=== PATIENT | male | born 1930 | race Caucasian/White ===

== ENCOUNTER → 2018-06-15 | Outpatient (CLI) | payer OTHER ==
[~2018-06-15] VITALS: Ht 180.3 cm; Wt 79.4 kg
[~2018-06-15] MED LIST: ATIVAN1 MG PO; CARVEDILOL12.5 MG PO; COUMADIN 4 MG TA4 M1 PO; FLOMAX0.4 MG PO; FLOVENT HFA 4444 MCG INH; GAVISCON ES CH1 EACH PO; LIPITOR 20 MG T20 M1 PO; LOSARTAN POTASS50 MG PO; MELATONIN5 M1 PO; NORVASC5 MG PO; OMEPRAZOLE 20 M20 M1 PO; POTASSIUM GLUCO99 M2 PO; ZOLOFT25 MG PO
== END | disposition home or self-care (01) ==
LOC: GI 09:07
DX: K92.1 Melena (principal); Z53.8 Procedure and treatment not carried out for other reasons; I10 Essential (primary) hypertension; D64.9 Anemia, unspecified; E78.00 Pure hypercholesterolemia, unspecified; Z95.1 Presence of aortocoronary bypass graft; Z87.891 Personal history of nicotine dependence; Z85.828 Personal history of other malignant neoplasm of skin; Z79.899 Other long term (current) drug therapy; Z98.890 Other specified postprocedural states; Z79.01 Long term (current) use of anticoagulants; Z88.0 Allergy status to penicillin; Z88.8 Allergy status to other drugs, medicaments and biological substances

== ENCOUNTER → 2018-08-03 | Outpatient (CLI) | payer OTHER ==
[~2018-08-03] VITALS: Ht 180.3 cm; Wt 81.6 kg
--- NOTE | ~2018-08-03 | P ---
[facility] [place] [address] PROCEDURE REPORT Name: HERNANDEZALANNA Room #: REG [facility]#: [id number] Admission: 08/03/18 Attend Phys: Liu Seaman MD Discharge: Date of : 32 Report #: [id number] THIS REPORT FOR: //name// CC: Liu Zee BRIEF HISTORY: The patient is an 87-year-old male who is on warfarin and recently had 2 days of black tarry type stools. However, hemoglobin in his primary care office was 12.4. He does recall recent abdominal pain. He also takes a baby aspirin daily. He may be using other aspirin to help him sleep at night, but he does not recall specifically. PREOPERATIVE DIAGNOSIS: Melena while on warfarin. POSTOPERATIVE DIAGNOSES: 1. A 3 cm sliding type hiatus hernia. 2. Patchy erythematous gastritis. MEDICATIONS: Deep sedation with propofol per Anesthesia. SPECIMEN: Biopsies of gastritis, rule out Helicobacter pylori. ESTIMATED BLOOD LOSS: 3 mL. PROCEDURE: EGD with biopsy. FINDINGS: Prior to propofol sedation, the procedure of upper endoscopy was discussed with the patient as well as potential risks and its complications. He indicates he understands and desires to proceed. DESCRIPTION OF PROCEDURE: With the patient in the left lateral decubitus position, the Olympus video endoscope was inserted in the cervical esophagus under direct vision without difficulty. Examination of this organ through its length revealed normal esophageal mucosa down the squamocolumnar junction. The squamocolumnar junction was inspected and noted to be unremarkable. No evidence of ulcers, erosions or bleeding lesions. He was noted to have about a 3 cm sliding type hiatus hernia. Mucosa in the hernia was normal. There is no evidence of Jesus ulcers or erosions. No bleeding lesions were seen. The scope was advanced into the stomach, and it was examined on end view as well as retroflexed views. He was noted to have a pattern of erythema consistent with gastritis in the antrum of the stomach. No ulcers were seen. Erosions were not seen. No blood was seen. Upon retroflexion, no abnormalities were noted in the proximal stomach. The pylorus, duodenal bulb and postbulbar sweep down to the third portion were inspected and noted to be unremarkable. At that point, the scope was withdrawn and careful circumferential views confirmed the above findings. The patient tolerated the procedure well. [address] [address] PROCEDURE REPORT Name: HERNANDEZALANNA Room #: REG [place] [place]#: [id number] Admission: 08/03/18 Attend Phys: Liu Seaman MD Discharge: Date of : 32 Report #: [id number] CONDITION OF THE PATIENT UPON DISCHARGE: Following the procedure, the patient was drowsy, arousable and conversant and will be discharged home when fully ambulatory. INSTRUCTIONS TO THE PATIENT AND FAMILY AT THE TIME OF DISCHARGE: The patient reports that he had 2 days of black stools. Hemoglobin from his primary care office was normal. I do not see any bleeding lesions, although it is possible he could have had bleeding. However, the patient has used Pepto-Bismol, but does not recall the timing with regards to taking it before or after the black stools. He does not appear to be bleeding at this point in time. He could resume his warfarin at this point. If there are further problems, colonoscopy and potentially small bowel capsule study would be indicated. He will return to care of Dr. Eduin Zee and return to see me as needed. <ELECTRONICALLY SIGNED> By: Liu Seaman MD 08/09/18 1300 [id number] 1101 Liu Seaman MD /nt
--- NOTE | ~2018-08-03 | PATH ---
[facility] [address] [place] [address] PATHOLOGY RPT PROCEDURE Name: ALANNA HERNANDEZ Room #: REG [facility].#: [id number] Admission: 08/03/18 Date of : 32 Discharge: Report #: [id number] Path Case #: [id number] [facility] Accession Number: [id number] . 01 Material submitted: . BX GASTRITIS . 01 Clinical history: . Melena Gastritis, hiatal hernia Rule out H. pylori . 02 Diagnosis: Gastric biopsy, "biopsy gastritis": - Mild chronic reactive gastropathy. - The immunoperoxidase stain for Helicobacter is negative. - The control worked appropriately. (SHA:galo; 08/08/2018) QMS/08/08/2018 . 02 Electronically signed: . Wilver Oliveira MD, Pathologist NPI- [id number] . 01 Gross description: . The specimen is received in formalin, labeled "Alanna Hernandez, BX gastritis" and consists of 5 fragments of soft varela tissue measuring between 0.2 x 0.1 cm and 0.5 x 0.3 x 0.1 cm. They are entirely submitted in A1. (SDY; 08/06/2018) SYU/SYU . 02 Pathologist provided ICD-10: K31.9 . 02 CPT . 333784, N70403 Specimen Comment: A courtesy copy of this report has been sent to Specimen Comment: [phone], . Specimen Comment: Report sent to and Specimen Comment: A duplicate report has been generated due to demographic updates. Performed at: [address] [id number] MD Jatin Ojeda MD Phone: [phone] Performed at: [address] [address] PATHOLOGY RPT PROCEDURE Name: ALANNA HERNANDEZ Cherie Room #: REG [facility].#: [id number] Admission: 08/03/18 Date of : 32 Discharge: Report #: [id number] Path Case #: [id number] [address] [id number] MD Agata Orozco MD Phone: [phone]
[2018-08-03 08:18] LABS: INR 1.1; PROTIME 11.7 Seconds (9.3-11.4)
== END | disposition home or self-care (01) ==
LOC: GI 07:32
PROVIDERS: Specialist
DX: K29.50 Unspecified chronic gastritis without bleeding (principal); K31.9 Disease of stomach and duodenum, unspecified; K29.60 Other gastritis without bleeding; K44.9 Diaphragmatic hernia without obstruction or gangrene; K92.1 Melena; D64.9 Anemia, unspecified; I10 Essential (primary) hypertension; E78.5 Hyperlipidemia, unspecified; I48.91 Unspecified atrial fibrillation; Z79.01 Long term (current) use of anticoagulants; Z79.82 Long term (current) use of aspirin; Z88.0 Allergy status to penicillin; Z88.8 Allergy status to other drugs, medicaments and biological substances; Z87.891 Personal history of nicotine dependence; Z95.1 Presence of aortocoronary bypass graft; Z98.890 Other specified postprocedural states; Z90.89 Acquired absence of other organs; Z98.42 Cataract extraction status, left eye; Z98.41 Cataract extraction status, right eye